=== PATIENT | female | born 1955 | race Caucasian/White ===

== ENCOUNTER 2024-12-29 17:08 | Emergency (ER) | payer MEDICARE, OTHER | END 2024-12-29 20:10 | LOC: LL.ED 17:08 | DX: S20.212A Contusion of left front wall of thorax, initial encounter (principal); S40.022A Contusion of left upper arm, initial encounter; S40.021A Contusion of right upper arm, initial encounter; S40.012A Contusion of left shoulder, initial encounter; S40.011A Contusion of right shoulder, initial encounter; Z88.6 Allergy status to analgesic agent; Z88.2 Allergy status to sulfonamides; Z88.8 Allergy status to other drugs, medicaments and biological substances; Z91.018 Allergy to other foods; W19.XXXA Unspecified fall, initial encounter | CPT/HCPCS: 71046; 73030-LT; 73030-RT; 99284; 99285 ==